=== PATIENT | female | born 1980 | race Caucasian/White ===

== ENCOUNTER 2019-06-20 19:47 | Emergency (ER) | payer BC, MEDICAID ==
--- NOTE | 2019-06-20 20:01 | Emergency Department Record ---
History of Present Illness - General Chief Complaint: Back Pain/Injury Stated Complaint: BACK PAIN Time Seen by Provider: 06/20/19 19:50 Source: Patient Mode of Arrival: Ambulatory Limitations: No limitations - History of Present Illness Initial Comments: 38 yo female presents to ED for evaluation of low back pain symptoms that began upon awakening this morning. Patient denies injury, fall, or direct blow, denies previous surgery or fever symptoms. Patient reports pain that is worse with position changes. Once seated/standing, pain symptoms are improved. Patient denies numbness, tingling, or lower extremity weakness symptoms. Patient has been taking Ibuprofen 400 mg for her pain symptoms at home. MD Complaint: Back pain Onset/Timin -: Hour(s) Similar Symptoms Previously: Yes Place: Other Radiation: None Severity: Moderate Severity scale (1-10): 8 Quality: Aching Consistency: Constant Improves With: None Worsens With: Movement Context: Unknown Associated Symptoms: Denies other symptoms Treatments Prior to Arrival: NSAIDS - Related Data Previous Rx's Medication Instructions Recorded Azithromycin [Zithromax] 250 mg PO DAILY #6 tab 03/02/15 Fluticasone Propionate [Flonase] 2 spray EACH NARES DAILY #1 bottle 03/02/15 Diazepam [Valium] 5 mg PO Q8H PRN #9 tab 06/20/19 Allergies Allergy/AdvReac Type Severity Reaction Status Date / Time No Known Drug Allergies Allergy Verified 03/02/15 08:24 Travel Screening - Travel/Exposure Within Last 30 Days Have you traveled within the last 30 days?: No - Travel/Exposure Within Last Year Have you traveled outside the [place] in the last year?: No - Additonal Travel Details Have you been exposed to anyone with a communicable illness?: No - Travel Symptoms Symptom Screening: None Review of Systems Constitutional: Denies: Chills, Fever, Malaise, Night sweats Eyes: Denies: Eye discharge, Eye pain ENT: Denies: Congestion, Ear pain, Epistaxis Respiratory: Denies: Cough, Dyspnea Cardiovascular: Denies: Chest pain, Dyspnea on exertion Endocrine: Denies: Fatigue, Heat or cold intolerance Gastrointestinal: Denies: Abdominal pain, Nausea, Vomiting Genitourinary: Denies: Incontinence, Retention Musculoskeletal: Reports: Back pain Skin: Denies: Bruising, Change in color Neurological: Denies: Abnormal gait, Confusion, Headache, Seizure Psychiatric: Denies: Anxiety Hematological/Lymphatic: Denies: Anemia, Blood Clots Past Medical History - SOCIAL HISTORY Smoking Status: Never smoker Alcohol Use: None Drug Use: None - RESPIRATORY Hx Respiratory Disorders: No - CARDIOVASCULAR Hx Cardio Disorders: Yes Hx Hypertension: Yes - NEURO Hx Neuro Disorders: No - GI Hx GI Disorders: No - Hx Genitourinary Disorders: No - ENDOCRINE Hx Endocrine Disorders: No - MUSCULOSKELETAL Hx Musculoskeletal Disorders: Yes - PSYCH Hx Psych Problems: Yes Hx Anxiety: Yes - HEMATOLOGY/ONCOLOGY Hx Hematology/Oncology Disorders: No Family Medical History Any Significant Family History?: No Physical Exam - General General Appearance: Alert, Oriented x3, Cooperative, Mild distress Limitations: No limitations - Head Head exam: Atraumatic, Normocephalic, Normal inspection Head exam detail: negative: Abrasion, Contusion, Jurado's sign, General tenderness, Hematoma, Laceration - Eye Eye exam: Normal appearance. negative: Conjunctival injection, Periorbital swelling, Periorbital tenderness, Scleral icterus - ENT Ear exam: negative: Auricular hematoma, Auricular trauma Nasal Exam: negative: Active bleeding, Discharge, Dried blood, Foreign body Mouth exam: negative: Drooling, Laceration, Muffled voice, Tongue elevation - Neck Neck exam: Normal inspection. negative: Meningismus, Tenderness - Respiratory Respiratory exam: Normal lung sounds bilaterally. negative: Rales, Respiratory distress, Rhonchi, Stridor - Cardiovascular Cardiovascular Exam: Regular rate, Normal rhythm, Normal heart sounds - GI/Abdominal GI/Abdominal exam: Soft. negative: Rebound, Rigid, Tenderness - Rectal Rectal exam: Deferred - exam: Deferred - Extremities Extremities exam: Normal inspection. negative: Pedal edema, Tenderness - Back Back exam: Reports: Paraspinal tenderness, Other (TTP over the SI joint left, pain is reproducible on examination.). Denies: CVA tenderness (R), CVA tenderness (L) - Neurological Neurological exam: Alert, Normal gait, Oriented X3 - Psychiatric Psychiatric exam: Normal affect, Normal mood - Skin Skin exam: Normal color. negative: Abrasion Type of lesion: negative: abrasion Course Vital Signs 06/20/19 19:49 Temperature 97.8 F Pulse Rate 88 Respiratory 18 Rate Blood Pressure 134/96 Pulse Ox 98 - Reevaluation(s) Reevaluation #1: 06/20/19 20:42 Lumbar Spine: Mild levoconvex curve to the spine No acute process identified Patient was updated on her radiograph results History and examination appear c/w myofascial strain at the SI joint. Will treat with Ibuprofen and Valium as needed for her symptoms. Patient appears stable for discharge at this time. Disposition Disposition: Discharge Clinical Impression: Low back strain Qualifiers: Encounter type: initial encounter Qualified Code(s): S39.012A - Strain of muscle, fascia and tendon of lower back, initial encounter Disposition: Home, Self-Care Condition: (2) Stable Instructions: Low Back Strain (ED) Additional Instructions: Return to ED if your symptoms worsen or if you have any concerns. Ibuprofen, Valium as directed. Follow-up with your family doctor in 3-5 days as directed. Prescriptions: Diazepam [Valium] 5 mg PO Q8H PRN #9 tab PRN Reason: Pain - Mod To Severe (5-10) Forms: Patient Portal Access Time of Disposition: 20:44 Quality - Quality Measures Quality Measures: N/A - Blood Pressure Screening Does Patient Have Any of the Following: No Blood Pressure Classification: Hypertensive Reading Systolic Measurement: 134 Diastolic Measurement: 96 Screening for High Blood Pressure: < First Hypertensive BP, F/U Documented > [[id number]] First Hypertensive Follow-up Interventions: Referral to alternative/primary care provider.
--- NOTE | 2019-06-20 20:36 | RADIOLOGY REPORT ---
EXAMINATION: Lumbar Spine Two or Three Views EXAM DATE: 06/20/2019 8:11 PM TECHNIQUE: AP and lateral views INDICATION: back pain COMPARISON: None ENCOUNTER: Initial FINDINGS: The lumbar spine alignment, disc spaces, and vertebral body heights are well-preserved. There is slig ht levoconvex curvature. There is no fracture or subluxation. The facets align normally. The hips benja ear normal. An IUD overlies the pelvis. IMPRESSION: Mild levoconvex curvature of the lumbar spine but otherwise no acute fracture or subluxation. Dictated by: Willian Velasquez MD on 06/20/2019 8:34 PM. .
[2019-06-20] MEDS ORDERED: DIAZEPAM 5 MG TABLET PO ONE (20:42)
== END 2019-06-20 20:49 | disposition home or self-care (01) ==
LOC: ER 19:47
DX: S39.012A Strain of muscle, fascia and tendon of lower back, initial encounter (principal); I10 Essential (primary) hypertension; W22.8XXA Striking against or struck by other objects, initial encounter
CPT/HCPCS: 99283 ×2; 72100; J3490